=== PATIENT | female | born 1965 | race Caucasian/White ===

== ENCOUNTER 2018-08-13 21:31 | Inpatient (IN) ==
[2018-08-14] MEDS ORDERED: SODIUM CHLORIDE 0.9% 1,000 ML IV STA (01:15)
[2018-08-14] MEDS ORDERED: ONDANSETRON 4 MG/2 ML VIAL IV STA (01:15)
[2018-08-14] MEDS ORDERED: KETOROLAC 30 MG/1 ML VIAL IV STA (01:15)
[2018-08-14] MEDS ORDERED: MORPHINE 4 MG/1 ML VIAL IV STA (01:15)
[2018-08-14 02:24] LABS: Basophils # 0.1 10*3/uL (0.0-0.2); Basophils % 0.2 % (0.0-0.8); Eosinophils % 0.1 % (0.00-10.9); Hemoglobin 12.1 GM/DL (12.0-16.0); Immature Granulocytes % 0.9 %; Immature Granulocytes Absolute 0.27 #; Lymphocytes # 0.9 10*3/uL (1.4-4.0); Lymphocytes % 2.9 % (21.3-54.2); Mean Corpuscular HGB Conc 32.7 GM/DL (32-36); Mean Corpuscular Hemoglobin 30 PG (27-34); Mean Corpuscular Volume 91.4 FL (87-102); Mean Platelet Volume 10.1 FL (9.6-12.0); Monocytes # 1.2 10*3/uL (0.11-0.8); Monocytes % 3.8 % (1.7-12.7); Neutrophils # 28.1 10*3/uL (1.4-7.4); Neutrophils % 92.1 % (38.7-73.9); Platelet Count 361 T/CUMM (130-400); Red Blood Count 4.05 MC/CUMM (3.8-5.5); Red Cell Distribution Width 13.5 % (9.3-17.3); White Blood Count 30.5 T/CUMM (4-12)
[2018-08-14] MEDS ORDERED: HYDROmorphone 2 MG/1 ML VIAL IV STA (02:24)
[2018-08-14] MEDS ORDERED: ONDANSETRON 4 MG/2 ML VIAL IV PRN (02:24)
[2018-08-14 02:34] LABS: Albumin 3.4 G/DL (3.4-5.0); Osmolality,Calculated 273.8 MOS/KG (273-304); Total Protein 7.4 G/DL (6.4-8.3)
[2018-08-14] MEDS: PIPERACILLIN/TAZOBACTAM 3,375 MG in SODIUM CHLORIDE 0.9% 100 ML IV SCH ×3 (04:10→20:43)
[2018-08-14] MEDS: metroNIDAZOLE INJ 500 MG in PREMIX 1 EACH IV SCH ×3 (04:10→17:59)
[2018-08-14 04:28] LABS: Band Neutrophils 4 % (0-10); Lymphocytes 2 % (20-55); Platelet Estimate Normal; Segmented Neutrophils 91 % (50-85); Total Cells Counted 100
[2018-08-14 04:29] LABS: Hypochromasia 2+
[2018-08-14] MEDS: DEXTROSE 5% LACTATED RINGERS 1,000 ML IV SCH ×3 (04:30→17:33)
[2018-08-14 06:21] LABS: Basophils # 0.1 10*3/uL (0.0-0.2); Basophils % 0.2 % (0.0-0.8); Eosinophils % 0.1 % (0.00-10.9); Hematocrit 34.6 VOL% (35.7-47.0); Hemoglobin 11.1 GM/DL (12.0-16.0); Immature Granulocytes % 1.5 %; Immature Granulocytes Absolute 0.48 #; Lymphocytes # 1.6 10*3/uL (1.4-4.0); Lymphocytes % 5.1 % (21.3-54.2); Mean Corpuscular HGB Conc 32.1 GM/DL (32-36); Mean Corpuscular Hemoglobin 30 PG (27-34); Mean Corpuscular Volume 93.5 FL (87-102); Mean Platelet Volume 9.5 FL (9.6-12.0); Monocytes # 0.8 10*3/uL (0.11-0.8); Monocytes % 2.6 % (1.7-12.7); Neutrophils # 28.4 10*3/uL (1.4-7.4); Neutrophils % 90.5 % (38.7-73.9); Platelet Count 314 T/CUMM (130-400); Red Cell Distribution Width 13.6 % (9.3-17.3); White Blood Count 31.4 T/CUMM (4-12)
[2018-08-14] MEDS: HYDROmorphone 2 MG/1 ML VIAL IV PRN ×3 (06:28→16:44)
[2018-08-14 07:05] LABS: Band Neutrophils 6 % (0-10); Hypochromasia 1+; Lymphocytes 4 % (20-55); Ovalocytes Slight; Platelet Estimate Adequate; Segmented Neutrophils 86 % (50-85); Total Cells Counted 100
[2018-08-14] MEDS: LEVOTHYROXINE 50 MCG TABLET PO SCH (10:22)
[2018-08-14] MEDS: hydroCHLOROthiazide 25 MG TABLET PO SCH (10:22)
[2018-08-14] MEDS: ASPIRIN EC 81 MG TABLET PO SCH (10:22)
[2018-08-14] MEDS: PROPRANOLOL 40 MG TABLET PO SCH ×2 (10:22→21:55)
[2018-08-14] MEDS: PANTOPRAZOLE 40 MG VIAL IV SCH (16:45)
[2018-08-14] MEDS: POTASSIUM CHLORIDE RIDER 10 MEQ in PREMIX 1 EACH IV PRN ×5 (16:58→21:53)
[2018-08-14 18:41] LABS: Apearance,Urine CLEAR (Clear); Bilirubin,Urine Negative (Negative); Blood, Urine Negative (Negative); Glucose,Urine (UA) Negative (Negative); Ketones,Urine 5 mg/dL (Negative); Nitrite,Urine Negative (Negative); Protein,Urine 30 MG/DL; RBC,Urine 3 /HPF (0-4); Squamous Epithelial Cell,Urine Occasional /HPF (0-10); Urine Color Amber (Yellow); Urine Specific Gravity 1.023 (1.001-1.035); WBC,Urine 5 /HPF (0-6)
[2018-08-15 01:16] LABS: Basophils % 0.2 % (0.0-0.8); Eosinophils # 0.1 10*3/uL (0.0-0.87); Eosinophils % 0.2 % (0.00-10.9); Hematocrit 34.1 VOL% (35.7-47.0); Hemoglobin 10.8 GM/DL (12.0-16.0); Immature Granulocytes % 1.2 %; Lymphocytes % 4.1 % (21.3-54.2); Mean Corpuscular HGB Conc 31.7 GM/DL (32-36); Mean Corpuscular Hemoglobin 30 PG (27-34); Mean Corpuscular Volume 94.5 FL (87-102); Mean Platelet Volume 9.6 FL (9.6-12.0); Monocytes # 0.9 10*3/uL (0.11-0.8); Monocytes % 3.7 % (1.7-12.7); Neutrophils % 90.6 % (38.7-73.9); Platelet Count 330 T/CUMM (130-400); Red Blood Count 3.61 MC/CUMM (3.8-5.5); Red Cell Distribution Width 13.8 % (9.3-17.3); White Blood Count 25.4 T/CUMM (4-12)
[2018-08-15 01:43] LABS: Calcium 8.3 MG/DL (8.5-10.1); Osmolality,Calculated 280.3 MOS/KG (273-304); Potassium 3.9 MMOL/L (3.5-5.1)
[2018-08-15] MEDS: metroNIDAZOLE INJ 500 MG in PREMIX 1 EACH IV SCH ×3 (02:20→17:55)
[2018-08-15] MEDS: DEXTROSE 5% LACTATED RINGERS 1,000 ML IV SCH ×3 (02:26→20:17)
[2018-08-15] MEDS: POTASSIUM CHLORIDE RIDER 10 MEQ in PREMIX 1 EACH IV PRN ×2 (02:27→03:34)
[2018-08-15 02:59] LABS: Band Neutrophils 1 % (0-10); Lymphocytes 6 % (20-55); Segmented Neutrophils 90 % (50-85)
[2018-08-15 03:00] LABS: Platelet Estimate Adequate; Total Cells Counted 100
[2018-08-15] MEDS: PIPERACILLIN/TAZOBACTAM 3,375 MG in SODIUM CHLORIDE 0.9% 100 ML IV SCH ×3 (03:35→20:15)
[2018-08-15] MEDS: LEVOTHYROXINE 50 MCG TABLET PO SCH (06:14)
[2018-08-15] MEDS: HYDROmorphone 2 MG/1 ML VIAL IV PRN (10:34)
[2018-08-15] MEDS: hydroCHLOROthiazide 25 MG TABLET PO SCH (10:41)
[2018-08-15] MEDS: ASPIRIN EC 81 MG TABLET PO SCH (10:41)
[2018-08-15] MEDS: PANTOPRAZOLE 40 MG VIAL IV SCH (10:41)
[2018-08-15] MEDS: PROPRANOLOL 40 MG TABLET PO SCH ×2 (10:42→20:16)
[2018-08-15] MEDS ORDERED: INFLUENZA VIRUS VACCINE 0.5 ML SYRINGE IM ONE (11:00)
[2018-08-16] MEDS: metroNIDAZOLE INJ 500 MG in PREMIX 1 EACH IV SCH ×3 (02:06→18:35)
[2018-08-16] MEDS: PIPERACILLIN/TAZOBACTAM 3,375 MG in SODIUM CHLORIDE 0.9% 100 ML IV SCH ×3 (04:25→19:38)
[2018-08-16 05:26] LABS: Basophils % 0.2 % (0.0-0.8); Eosinophils # 0.1 10*3/uL (0.0-0.87); Eosinophils % 0.7 % (0.00-10.9); Hematocrit 33.5 VOL% (35.7-47.0); Hemoglobin 10.8 GM/DL (12.0-16.0); Immature Granulocytes % 1.2 %; Immature Granulocytes Absolute 0.22 #; Lymphocytes # 1.2 10*3/uL (1.4-4.0); Lymphocytes % 6.8 % (21.3-54.2); Mean Corpuscular HGB Conc 32.2 GM/DL (32-36); Mean Corpuscular Hemoglobin 30 PG (27-34); Mean Corpuscular Volume 93.6 FL (87-102); Monocytes # 1.1 10*3/uL (0.11-0.8); Monocytes % 6.1 % (1.7-12.7); Platelet Count 369 T/CUMM (130-400); Red Blood Count 3.58 MC/CUMM (3.8-5.5); Red Cell Distribution Width 13.5 % (9.3-17.3); White Blood Count 17.7 T/CUMM (4-12)
[2018-08-16] MEDS: LEVOTHYROXINE 50 MCG TABLET PO SCH (06:11)
[2018-08-16 06:44] LABS: Calcium 8.3 MG/DL (8.5-10.1); Osmolality,Calculated 281.1 MOS/KG (273-304); Potassium 3.2 MMOL/L (3.5-5.1)
[2018-08-16] MEDS: ASPIRIN EC 81 MG TABLET PO SCH (10:02)
[2018-08-16] MEDS: POTASSIUM CHLORIDE 20 MEQ TABLET PO PRN ×4 (10:03→21:12)
[2018-08-16] MEDS: PANTOPRAZOLE 40 MG VIAL IV SCH (10:03)
[2018-08-16] MEDS: hydroCHLOROthiazide 25 MG TABLET PO SCH (10:03)
[2018-08-16] MEDS: PROPRANOLOL 40 MG TABLET PO SCH ×2 (10:03→21:12)
[2018-08-16] MEDS: DEXTROSE 5% LACTATED RINGERS 1,000 ML IV SCH (10:04)
[2018-08-16] MEDS: HYDROmorphone 2 MG/1 ML VIAL IV PRN (12:22)
[2018-08-16] MEDS ORDERED: ZALEPLON 5 MG CAPSULE PO PRN (19:16)
[2018-08-17] MEDS: metroNIDAZOLE INJ 500 MG in PREMIX 1 EACH IV SCH (02:38)
[2018-08-17 03:33] LABS: Basophils % 0.3 % (0.0-0.8); Eosinophils # 0.3 10*3/uL (0.0-0.87); Eosinophils % 1.9 % (0.00-10.9); Hematocrit 35.7 VOL% (35.7-47.0); Hemoglobin 11.4 GM/DL (12.0-16.0); Immature Granulocytes % 1.5 %; Immature Granulocytes Absolute 0.21 #; Lymphocytes # 1.3 10*3/uL (1.4-4.0); Lymphocytes % 9.5 % (21.3-54.2); Mean Corpuscular HGB Conc 31.9 GM/DL (32-36); Mean Corpuscular Hemoglobin 29 PG (27-34); Mean Platelet Volume 9.6 FL (9.6-12.0); Monocytes # 1.3 10*3/uL (0.11-0.8); Monocytes % 9.7 % (1.7-12.7); Neutrophils # 10.5 10*3/uL (1.4-7.4); Neutrophils % 77.1 % (38.7-73.9); Platelet Count 405 T/CUMM (130-400); Red Blood Count 3.88 MC/CUMM (3.8-5.5); Red Cell Distribution Width 13.7 % (9.3-17.3); White Blood Count 13.6 T/CUMM (4-12)
[2018-08-17 03:59] LABS: Calcium 8.7 MG/DL (8.5-10.1); Osmolality,Calculated 280.3 MOS/KG (273-304); Potassium 3.8 MMOL/L (3.5-5.1)
[2018-08-17] MEDS: PIPERACILLIN/TAZOBACTAM 3,375 MG in SODIUM CHLORIDE 0.9% 100 ML IV SCH (04:47)
[2018-08-17] MEDS: HYDROmorphone 2 MG/1 ML VIAL IV PRN (04:53)
[2018-08-17] MEDS: LEVOTHYROXINE 50 MCG TABLET PO SCH (06:40)
[2018-08-17 08:05] VITALS: BP 116/76
[2018-08-17] MEDS: hydroCHLOROthiazide 25 MG TABLET PO SCH (09:07)
[2018-08-17] MEDS: ASPIRIN EC 81 MG TABLET PO SCH (09:07)
[2018-08-17] MEDS: PROPRANOLOL 40 MG TABLET PO SCH (09:07)
[2018-08-17] MEDS: PANTOPRAZOLE 40 MG VIAL IV SCH (09:09)
== END 2018-08-17 11:02 | disposition home or self-care (01) | DRG 392 ==
LOC: N.EDINP 21:31 → N.ED 21:31 → N.3E 08-14 08:15
PROVIDERS: ADMIT Surgery; ATTEND Surgery

== ENCOUNTER 2018-08-18 13:04 | Inpatient (IN) ==
[2018-08-18] MEDS ORDERED: SODIUM CHLORIDE 0.9% 500 ML IV STA (14:17)
[2018-08-18] MEDS ORDERED: SODIUM CHLORIDE 0.9% 1,000 ML IV STA (15:32)
[2018-08-18 15:45] LABS: Apearance,Urine CLEAR (Clear); Bilirubin,Urine Negative (Negative); Blood, Urine Negative (Negative); Glucose,Urine (UA) Negative (Negative); Hyaline Casts,Urine 1 /LPF (0-3); Ketones,Urine 5 mg/dL (Negative); Mucus,Urine Occasional /LPF (Occasional); Nitrite,Urine Negative (Negative); Protein,Urine Negative; RBC,Urine 2 /HPF (0-4); Squamous Epithelial Cell,Urine Occasional /HPF (0-10); Urine Color Yellow (Yellow); Urine Specific Gravity 1.009 (1.001-1.035); Urine Urobilinogen < 2.0 EU/DL (0.2-1.0); WBC,Urine 1 /HPF (0-6)
[2018-08-18 16:06] LABS: Basophils # 0.1 10*3/uL (0.0-0.2); Basophils % 0.5 % (0.0-0.8); Eosinophils # 0.1 10*3/uL (0.0-0.87); Eosinophils % 0.6 % (0.00-10.9); Hematocrit 37.6 VOL% (35.7-47.0); Immature Granulocytes % 4.5 %; Immature Granulocytes Absolute 0.86 #; Lymphocytes # 1.5 10*3/uL (1.4-4.0); Lymphocytes % 7.7 % (21.3-54.2); Mean Corpuscular HGB Conc 31.9 GM/DL (32-36); Mean Corpuscular Hemoglobin 29 PG (27-34); Mean Platelet Volume 9.5 FL (9.6-12.0); Monocytes # 1.4 10*3/uL (0.11-0.8); Monocytes % 7.5 % (1.7-12.7); NRBC # 0.02 10*3/uL; Neutrophils # 15.3 10*3/uL (1.4-7.4); Neutrophils % 79.2 % (38.7-73.9); Platelet Count 499 T/CUMM (130-400); Red Blood Count 4.13 MC/CUMM (3.8-5.5); Red Cell Distribution Width 13.6 % (9.3-17.3); White Blood Count 19.3 T/CUMM (4-12)
[2018-08-18 16:27] LABS: Calcium 8.9 MG/DL (8.5-10.1); Osmolality,Calculated 270.8 MOS/KG (273-304); Potassium 3.5 MMOL/L (3.5-5.1)
[2018-08-18] MEDS: PIPERACILLIN/TAZOBACTAM 3,375 MG in SODIUM CHLORIDE 0.9% 100 ML IV SCH ×2 (16:29→23:12)
[2018-08-18] MEDS ORDERED: HYDROmorphone 2 MG/1 ML VIAL IV STA (16:37)
[2018-08-18] MEDS ORDERED: ONDANSETRON 4 MG/2 ML VIAL IV STA (16:37)
[2018-08-18] MEDS ORDERED: ONDANSETRON 4 MG/2 ML VIAL ONE (16:39)
[2018-08-18] MEDS ORDERED: HYDROmorphone 2 MG/1 ML VIAL ONE (16:40)
[2018-08-18] MEDS ORDERED: PIPERACILLIN/TAZOBACTAM 3,375 MG in SODIUM CHLORIDE 0.9% 100 ML IV SCH (18:10)
[2018-08-18] MEDS ORDERED: ACETAMINOPHEN 325 MG TABLET PO PRN (18:10)
[2018-08-18] MEDS ORDERED: tiZANidine 4 MG TABLET PO PRN (18:10)
[2018-08-18] MEDS ORDERED: ONDANSETRON 4 MG/2 ML VIAL IV PRN (18:10)
[2018-08-18 18:29] LABS: Band Neutrophils 7 % (0-10); Eosinophils 1 % (0-10); Lymphocytes 10 % (20-55); Segmented Neutrophils 76 % (50-85)
[2018-08-18 18:30] LABS: Polychromasia Few
[2018-08-18 18:31] LABS: Spherocytes Few
[2018-08-18 18:32] LABS: Anisocytosis Slight
[2018-08-18 18:33] LABS: Ovalocytes Few; Platelet Estimate Increased
[2018-08-18 18:34] LABS: Total Cells Counted 100
[2018-08-18] MEDS: SODIUM CHLORIDE 0.9% 1,000 ML IV SCH ×2 (20:12→23:12)
[2018-08-18] MEDS: LACTATED RINGERS 1,000 ML IV SCH (20:13)
[2018-08-18] MEDS: traZODone 50 MG TABLET PO PRN (20:19)
[2018-08-18] MEDS: PROPRANOLOL 40 MG TABLET PO SCH (21:21)
[2018-08-19] MEDS: LACTATED RINGERS 1,000 ML IV SCH ×2 (03:51→10:59)
[2018-08-19 05:48] LABS: Basophils # 0.1 10*3/uL (0.0-0.2); Basophils % 0.6 % (0.0-0.8); Eosinophils # 0.2 10*3/uL (0.0-0.87); Eosinophils % 1.6 % (0.00-10.9); Hemoglobin 11.2 GM/DL (12.0-16.0); Immature Granulocytes % 4.7 %; Immature Granulocytes Absolute 0.72 #; Lymphocytes # 1.8 10*3/uL (1.4-4.0); Lymphocytes % 11.9 % (21.3-54.2); Mean Corpuscular Hemoglobin 30 PG (27-34); Mean Corpuscular Volume 92.1 FL (87-102); Mean Platelet Volume 9.6 FL (9.6-12.0); Monocytes # 1.6 10*3/uL (0.11-0.8); Monocytes % 10.2 % (1.7-12.7); NRBC # 0.02 10*3/uL; Neutrophils # 10.9 10*3/uL (1.4-7.4); Platelet Count 495 T/CUMM (130-400); Red Cell Distribution Width 13.8 % (9.3-17.3); White Blood Count 15.3 T/CUMM (4-12)
[2018-08-19 05:53] LABS: Calcium 7.9 MG/DL (8.5-10.1); Osmolality,Calculated 277.3 MOS/KG (273-304); Potassium 3.3 MMOL/L (3.5-5.1)
[2018-08-19] MEDS: LEVOTHYROXINE 50 MCG TABLET PO SCH (06:03)
[2018-08-19 06:17] LABS: Band Neutrophils 1 % (0-10); Eosinophils 1 % (0-10); Lymphocytes 13 % (20-55); Myelocytes 1 %; Segmented Neutrophils 79 % (50-85); Total Cells Counted 100
[2018-08-19 06:18] LABS: Atypical Lymphocytes Few; Hypochromasia 1+
[2018-08-19] MEDS: PIPERACILLIN/TAZOBACTAM 3,375 MG in SODIUM CHLORIDE 0.9% 100 ML IV SCH ×2 (09:02→16:04)
[2018-08-19] MEDS: SODIUM CHLORIDE 0.9% 1,000 ML IV SCH ×2 (09:02→16:04)
[2018-08-19] MEDS: hydroCHLOROthiazide 25 MG TABLET PO SCH (09:03)
[2018-08-19] MEDS: ASPIRIN EC 81 MG TABLET PO SCH (09:03)
[2018-08-19] MEDS: PANTOPRAZOLE 40 MG TABLET PO SCH (09:04)
[2018-08-19] MEDS: PROPRANOLOL 40 MG TABLET PO SCH ×2 (09:04→21:33)
[2018-08-19] MEDS ORDERED: MIDAZOLAM 2 MG/2 ML VIAL IV ONE (09:55)
[2018-08-19] MEDS ORDERED: fentaNYL 100 MCG/2 ML VIAL IV ONE (09:55)
[2018-08-19] MEDS ORDERED: DIAZEPAM 5 MG TABLET PO ONE (09:55)
[2018-08-19] MEDS ORDERED: SODIUM CHLORIDE 0.45% 1,000 ML IV SCH (10:00)
[2018-08-19] MEDS: MORPHINE 4 MG/1 ML VIAL IV PRN ×2 (12:13→16:05)
[2018-08-19] MEDS: ENOXAPARIN 40 MG/0.4 ML SYRINGE SUBCUT SCH (12:22)
[2018-08-19] MEDS ORDERED: fentaNYL 100 MCG/2 ML VIAL ONE (14:39)
[2018-08-19] MEDS ORDERED: MIDAZOLAM 2 MG/2 ML VIAL ONE (14:39)
[2018-08-20] MEDS: SODIUM CHLORIDE 0.9% 1,000 ML IV SCH (00:54)
[2018-08-20] MEDS: PIPERACILLIN/TAZOBACTAM 3,375 MG in SODIUM CHLORIDE 0.9% 100 ML IV SCH ×3 (00:54→15:40)
[2018-08-20 05:07] LABS: Basophils % 0.3 % (0.0-0.8); Eosinophils # 0.2 10*3/uL (0.0-0.87); Eosinophils % 1.8 % (0.00-10.9); Hematocrit 34.8 VOL% (35.7-47.0); Immature Granulocytes % 4.8 %; Immature Granulocytes Absolute 0.61 #; Lymphocytes # 1.8 10*3/uL (1.4-4.0); Lymphocytes % 13.9 % (21.3-54.2); Mean Corpuscular HGB Conc 31.6 GM/DL (32-36); Mean Corpuscular Hemoglobin 29 PG (27-34); Mean Corpuscular Volume 92.1 FL (87-102); Mean Platelet Volume 9.6 FL (9.6-12.0); Monocytes # 1.1 10*3/uL (0.11-0.8); Monocytes % 8.5 % (1.7-12.7); Neutrophils % 70.7 % (38.7-73.9); Platelet Count 526 T/CUMM (130-400); Red Blood Count 3.78 MC/CUMM (3.8-5.5); Red Cell Distribution Width 13.7 % (9.3-17.3); White Blood Count 12.8 T/CUMM (4-12)
[2018-08-20 05:38] LABS: Calcium 8.8 MG/DL (8.5-10.1); Osmolality,Calculated 274.5 MOS/KG (273-304); Potassium 3.5 MMOL/L (3.5-5.1)
[2018-08-20 05:42] LABS: Eosinophils 2 % (0-10); Lymphocytes 11 % (20-55); Platelet Estimate Increased; Segmented Neutrophils 79 % (50-85); Total Cells Counted 100
[2018-08-20] MEDS: LEVOTHYROXINE 50 MCG TABLET PO SCH (06:38)
[2018-08-20] MEDS: ASPIRIN EC 81 MG TABLET PO SCH (08:54)
[2018-08-20] MEDS: PANTOPRAZOLE 40 MG TABLET PO SCH (08:54)
[2018-08-20] MEDS: PROPRANOLOL 40 MG TABLET PO SCH ×2 (08:54→21:15)
[2018-08-20] MEDS: hydroCHLOROthiazide 25 MG TABLET PO SCH (08:54)
[2018-08-20] MEDS: ENOXAPARIN 40 MG/0.4 ML SYRINGE SUBCUT SCH (11:49)
[2018-08-20] MEDS: traZODone 50 MG TABLET PO PRN (21:15)
[2018-08-21] MEDS: PIPERACILLIN/TAZOBACTAM 3,375 MG in SODIUM CHLORIDE 0.9% 100 ML IV SCH ×4 (02:24→23:16)
[2018-08-21 05:22] LABS: Calcium 8.8 MG/DL (8.5-10.1); Osmolality,Calculated 277.3 MOS/KG (273-304); Potassium 3.5 MMOL/L (3.5-5.1)
[2018-08-21 05:42] LABS: Basophils # 0.1 10*3/uL (0.0-0.2); Basophils % 0.7 % (0.0-0.8); Eosinophils # 0.3 10*3/uL (0.0-0.87); Eosinophils % 2.7 % (0.00-10.9); Hematocrit 37.3 VOL% (35.7-47.0); Hemoglobin 11.9 GM/DL (12.0-16.0); Immature Granulocytes % 5.2 %; Immature Granulocytes Absolute 0.62 #; Lymphocytes # 2.2 10*3/uL (1.4-4.0); Lymphocytes % 18.7 % (21.3-54.2); Mean Corpuscular HGB Conc 31.9 GM/DL (32-36); Mean Corpuscular Hemoglobin 29 PG (27-34); Mean Corpuscular Volume 92.1 FL (87-102); Mean Platelet Volume 9.3 FL (9.6-12.0); Monocytes % 8.5 % (1.7-12.7); Neutrophils # 7.7 10*3/uL (1.4-7.4); Neutrophils % 64.2 % (38.7-73.9); Platelet Count 574 T/CUMM (130-400); Red Blood Count 4.05 MC/CUMM (3.8-5.5); Red Cell Distribution Width 13.6 % (9.3-17.3)
[2018-08-21] MEDS: LEVOTHYROXINE 50 MCG TABLET PO SCH (06:37)
[2018-08-21 06:57] LABS: Eosinophils 6 % (0-10); Lymphocytes 17 % (20-55); Platelet Estimate Increased; Polychromasia Few; Segmented Neutrophils 74 % (50-85); Total Cells Counted 100
[2018-08-21] MEDS: hydroCHLOROthiazide 25 MG TABLET PO SCH (09:33)
[2018-08-21] MEDS: PANTOPRAZOLE 40 MG TABLET PO SCH (09:33)
[2018-08-21] MEDS: PROPRANOLOL 40 MG TABLET PO SCH ×2 (09:33→21:11)
[2018-08-21] MEDS: ASPIRIN EC 81 MG TABLET PO SCH (09:33)
[2018-08-21] MEDS: ENOXAPARIN 40 MG/0.4 ML SYRINGE SUBCUT SCH (10:54)
[2018-08-22] MEDS: LEVOTHYROXINE 50 MCG TABLET PO SCH (05:58)
[2018-08-22 06:00] LABS: Basophils # 0.1 10*3/uL (0.0-0.2); Basophils % 0.6 % (0.0-0.8); Eosinophils # 0.4 10*3/uL (0.0-0.87); Eosinophils % 2.5 % (0.00-10.9); Hematocrit 38.5 VOL% (35.7-47.0); Hemoglobin 12.4 GM/DL (12.0-16.0); Immature Granulocytes % 4.3 %; Immature Granulocytes Absolute 0.64 #; Lymphocytes # 1.8 10*3/uL (1.4-4.0); Lymphocytes % 11.7 % (21.3-54.2); Mean Corpuscular HGB Conc 32.2 GM/DL (32-36); Mean Corpuscular Hemoglobin 30 PG (27-34); Mean Corpuscular Volume 92.1 FL (87-102); Mean Platelet Volume 9.4 FL (9.6-12.0); Monocytes # 0.9 10*3/uL (0.11-0.8); Monocytes % 5.9 % (1.7-12.7); Neutrophils # 11.2 10*3/uL (1.4-7.4); Platelet Count 631 T/CUMM (130-400); Red Blood Count 4.18 MC/CUMM (3.8-5.5); Red Cell Distribution Width 13.5 % (9.3-17.3)
[2018-08-22 06:23] LABS: Calcium 9.3 MG/DL (8.5-10.1); Osmolality,Calculated 272.7 MOS/KG (273-304); Potassium 3.5 MMOL/L (3.5-5.1)
[2018-08-22 06:32] LABS: Band Neutrophils 2 % (0-10); Lymphocytes 13 % (20-55); Metamyelocytes 4 %; Total Cells Counted 100
[2018-08-22 06:33] LABS: Eosinophils 2 % (0-10); Platelet Estimate Increased; Segmented Neutrophils 73 % (50-85)
[2018-08-22 06:34] LABS: Hypochromasia Slight; Ovalocytes Few; Polychromasia 1+
[2018-08-22] MEDS: PIPERACILLIN/TAZOBACTAM 3,375 MG in SODIUM CHLORIDE 0.9% 100 ML IV SCH ×2 (07:41→15:32)
[2018-08-22] MEDS: ASPIRIN EC 81 MG TABLET PO SCH (09:34)
[2018-08-22] MEDS: hydroCHLOROthiazide 25 MG TABLET PO SCH (09:34)
[2018-08-22] MEDS: PANTOPRAZOLE 40 MG TABLET PO SCH (09:35)
[2018-08-22] MEDS: PROPRANOLOL 40 MG TABLET PO SCH ×2 (09:35→20:50)
[2018-08-22] MEDS: ENOXAPARIN 40 MG/0.4 ML SYRINGE SUBCUT SCH (10:41)
[2018-08-22] MEDS: traZODone 50 MG TABLET PO PRN (20:44)
[2018-08-23] MEDS: PIPERACILLIN/TAZOBACTAM 3,375 MG in SODIUM CHLORIDE 0.9% 100 ML IV SCH (00:29)
[2018-08-23] MEDS: LEVOTHYROXINE 50 MCG TABLET PO SCH (05:57)
[2018-08-23 06:42] LABS: Basophils # 0.1 10*3/uL (0.0-0.2); Basophils % 0.6 % (0.0-0.8); Eosinophils # 0.3 10*3/uL (0.0-0.87); Eosinophils % 2.1 % (0.00-10.9); Hematocrit 39.8 VOL% (35.7-47.0); Hemoglobin 12.6 GM/DL (12.0-16.0); Immature Granulocytes % 3.1 %; Immature Granulocytes Absolute 0.44 #; Lymphocytes # 1.5 10*3/uL (1.4-4.0); Lymphocytes % 10.6 % (21.3-54.2); Mean Corpuscular HGB Conc 31.7 GM/DL (32-36); Mean Corpuscular Hemoglobin 29 PG (27-34); Mean Corpuscular Volume 91.3 FL (87-102); Mean Platelet Volume 9.3 FL (9.6-12.0); Monocytes # 0.8 10*3/uL (0.11-0.8); Monocytes % 5.8 % (1.7-12.7); Neutrophils # 11.2 10*3/uL (1.4-7.4); Neutrophils % 77.8 % (38.7-73.9); Platelet Count 673 T/CUMM (130-400); Red Blood Count 4.36 MC/CUMM (3.8-5.5); Red Cell Distribution Width 13.4 % (9.3-17.3); White Blood Count 14.4 T/CUMM (4-12)
[2018-08-23] MEDS: metroNIDAZOLE INJ 500 MG in PREMIX 1 EACH IV SCH ×3 (06:55→21:29)
[2018-08-23] MEDS: CIPROFLOXACIN INJ 400 MG in PREMIX 1 EACH IV SCH ×2 (08:27→19:05)
[2018-08-23] MEDS: hydroCHLOROthiazide 25 MG TABLET PO SCH (08:34)
[2018-08-23] MEDS: ASPIRIN EC 81 MG TABLET PO SCH (08:34)
[2018-08-23] MEDS: PROPRANOLOL 40 MG TABLET PO SCH ×2 (08:34→21:21)
[2018-08-23] MEDS: PANTOPRAZOLE 40 MG TABLET PO SCH (08:34)
[2018-08-23] MEDS: ENOXAPARIN 40 MG/0.4 ML SYRINGE SUBCUT SCH (11:30)
[2018-08-23] MEDS: traZODone 50 MG TABLET PO PRN (21:21)
[2018-08-24 05:39] LABS: Basophils # 0.1 10*3/uL (0.0-0.2); Basophils % 0.6 % (0.0-0.8); Eosinophils # 0.3 10*3/uL (0.0-0.87); Eosinophils % 1.9 % (0.00-10.9); Hemoglobin 12.8 GM/DL (12.0-16.0); Immature Granulocytes % 3.2 %; Immature Granulocytes Absolute 0.43 #; Lymphocytes # 1.7 10*3/uL (1.4-4.0); Lymphocytes % 12.8 % (21.3-54.2); Mean Corpuscular Hemoglobin 29 PG (27-34); Mean Corpuscular Volume 90.9 FL (87-102); Mean Platelet Volume 9.2 FL (9.6-12.0); Monocytes # 0.8 10*3/uL (0.11-0.8); Monocytes % 6.3 % (1.7-12.7); Neutrophils % 75.2 % (38.7-73.9); Platelet Count 673 T/CUMM (130-400); Red Cell Distribution Width 13.5 % (9.3-17.3); White Blood Count 13.3 T/CUMM (4-12)
[2018-08-24] MEDS: metroNIDAZOLE INJ 500 MG in PREMIX 1 EACH IV SCH (05:44)
[2018-08-24] MEDS: LEVOTHYROXINE 50 MCG TABLET PO SCH (05:47)
[2018-08-24] MEDS: CIPROFLOXACIN INJ 400 MG in PREMIX 1 EACH IV SCH (06:45)
[2018-08-24] MEDS: PANTOPRAZOLE 40 MG TABLET PO SCH (08:07)
[2018-08-24] MEDS: ASPIRIN EC 81 MG TABLET PO SCH (08:07)
[2018-08-24] MEDS: hydroCHLOROthiazide 25 MG TABLET PO SCH (08:07)
[2018-08-24] MEDS: PROPRANOLOL 40 MG TABLET PO SCH (08:07)
[2018-08-24] MEDS: ENOXAPARIN 40 MG/0.4 ML SYRINGE SUBCUT SCH (09:47)
[2018-08-24 11:10] VITALS: BP 120/72
== END 2018-08-24 11:40 | disposition home or self-care (01) | DRG 392 ==
LOC: N.ED 13:04 → N.EDINP 16:40 → N.3E 18:00
PROVIDERS: ADMIT Surgery; ATTEND Surgery

== ENCOUNTER 2018-09-06 19:48 | Inpatient (IN) ==
[2018-09-06 21:00] LABS: Basophils % 0.3 % (0.0-0.8); Eosinophils # 0.2 10*3/uL (0.0-0.87); Eosinophils % 1.2 % (0.00-10.9); Hematocrit 38.4 VOL% (35.7-47.0); Hemoglobin 12.4 GM/DL (12.0-16.0); Immature Granulocytes % 1.1 %; Immature Granulocytes Absolute 0.15 #; Lymphocytes # 1.9 10*3/uL (1.4-4.0); Lymphocytes % 13.7 % (21.3-54.2); Mean Corpuscular HGB Conc 32.3 GM/DL (32-36); Mean Corpuscular Hemoglobin 29 PG (27-34); Mean Platelet Volume 9.3 FL (9.6-12.0); Monocytes # 1.3 10*3/uL (0.11-0.8); Monocytes % 9.5 % (1.7-12.7); Neutrophils # 10.1 10*3/uL (1.4-7.4); Neutrophils % 74.2 % (38.7-73.9); Platelet Count 571 T/CUMM (130-400); Red Blood Count 4.22 MC/CUMM (3.8-5.5); Red Cell Distribution Width 13.2 % (9.3-17.3); White Blood Count 13.6 T/CUMM (4-12)
[2018-09-06 21:17] LABS: Alanine Aminotransferase 15 U/L (13-56); Albumin 3.2 G/DL (3.4-5.0); Alkaline Phosphatase 82 U/L (45-117); Amylase 45 U/L (25-115); Aspartate Amino Transferase 11 U/L (0-37); Bilirubin,Total < 0.39 MG/DL (0.2-1.0); Blood Urea Nitrogen 7 MG/DL (7-18); Calcium 9.7 MG/DL (8.5-10.1); Glucose 133 MG/DL (74-106); Osmolality,Calculated 272.8 MOS/KG (273-304); Potassium 3.3 MMOL/L (3.5-5.1); Sodium 137 MMOL/L (136-145); Total Protein 7.6 G/DL (6.4-8.3)
[2018-09-06] MEDS ORDERED: HYDROmorphone 2 MG/1 ML VIAL IV STA (22:07)
[2018-09-06] MEDS ORDERED: PIPERACILLIN/TAZOBACTAM 3,375 MG in SODIUM CHLORIDE 0.9% 100 ML IV SCH (23:45)
[2018-09-06] MEDS ORDERED: ACETAMINOPHEN 325 MG TABLET PO PRN (23:57)
[2018-09-07] MEDS ORDERED: HYDROmorphone 2 MG/1 ML VIAL IV STA (00:14)
[2018-09-07] MEDS ORDERED: PIPERACILLIN/TAZOBACTAM 3,375 MG in SODIUM CHLORIDE 0.9% 100 ML IV STA (00:15)
[2018-09-07] MEDS: DEXTROSE 5% NACL 0.45% 1,000 ML IV SCH ×2 (02:26→10:53)
[2018-09-07] MEDS ORDERED: INFLUENZA VIRUS VACCINE 0.5 ML SYRINGE IM ONE (02:59)
[2018-09-07 04:02] LABS: Apearance,Urine CLEAR (Clear); Bilirubin,Urine Negative (Negative); Blood, Urine Negative (Negative); Glucose,Urine (UA) Negative (Negative); Ketones,Urine Negative (Negative); Mucus,Urine Occasional /LPF (Occasional); Nitrite,Urine Negative (Negative); Protein,Urine Negative; RBC,Urine 1 /HPF (0-4); Squamous Epithelial Cell,Urine Occasional /HPF (0-10); Urine Color Yellow (Yellow); Urine Specific Gravity 1.009 (1.001-1.035); Urine Urobilinogen < 2.0 EU/DL (0.2-1.0); WBC,Urine <1 /HPF (0-6)
[2018-09-07] MEDS: HYDROmorphone 2 MG/1 ML VIAL IV PRN ×2 (04:32→17:14)
[2018-09-07 04:56] LABS: Calcium 9.1 MG/DL (8.5-10.1); Osmolality,Calculated 274.7 MOS/KG (273-304); Potassium 3.4 MMOL/L (3.5-5.1)
[2018-09-07 08:33] LABS: Basophils % 0.2 % (0.0-0.8); Eosinophils # 0.1 10*3/uL (0.0-0.87); Eosinophils % 0.8 % (0.00-10.9); Hematocrit 36.5 VOL% (35.7-47.0); Hemoglobin 11.4 GM/DL (12.0-16.0); Immature Granulocytes % 0.8 %; Lymphocytes # 1.5 10*3/uL (1.4-4.0); Lymphocytes % 11.5 % (21.3-54.2); Mean Corpuscular HGB Conc 31.2 GM/DL (32-36); Mean Corpuscular Hemoglobin 29 PG (27-34); Mean Corpuscular Volume 92.9 FL (87-102); Mean Platelet Volume 9.7 FL (9.6-12.0); Monocytes # 1.3 10*3/uL (0.11-0.8); Monocytes % 10.3 % (1.7-12.7); Neutrophils # 9.8 10*3/uL (1.4-7.4); Neutrophils % 76.4 % (38.7-73.9); Platelet Count 520 T/CUMM (130-400); Red Blood Count 3.93 MC/CUMM (3.8-5.5); Red Cell Distribution Width 13.4 % (9.3-17.3); White Blood Count 12.9 T/CUMM (4-12)
[2018-09-07] MEDS: PANTOPRAZOLE 40 MG TABLET PO SCH (10:50)
[2018-09-07] MEDS: ENOXAPARIN 40 MG/0.4 ML SYRINGE SUBCUT SCH (15:41)
[2018-09-07] MEDS: ERTAPENEM 1,000 MG in SODIUM CHLORIDE 0.9% 100 ML IV SCH (15:41)
[2018-09-07] MEDS: DEXT 5% NACL 0.45% KCL 40 MEQ 40 MEQ/1,000 ML BAG IV SCH (17:14)
[2018-09-07] MEDS: POTASSIUM CHLORIDE 20 MEQ TABLET PO PRN (21:08)
[2018-09-08] MEDS: POTASSIUM CHLORIDE 20 MEQ TABLET PO PRN (00:14)
[2018-09-08] MEDS: HYDROmorphone 2 MG/1 ML VIAL IV PRN ×4 (01:21→17:06)
[2018-09-08] MEDS: DEXT 5% NACL 0.45% KCL 40 MEQ 40 MEQ/1,000 ML BAG IV SCH ×4 (01:24→20:13)
[2018-09-08 06:52] LABS: Basophils % 0.3 % (0.0-0.8); Calcium 8.3 MG/DL (8.5-10.1); Eosinophils # 0.2 10*3/uL (0.0-0.87); Eosinophils % 1.7 % (0.00-10.9); Hematocrit 36.1 VOL% (35.7-47.0); Immature Granulocytes % 0.7 %; Immature Granulocytes Absolute 0.06 #; Lymphocytes # 1.6 10*3/uL (1.4-4.0); Lymphocytes % 18.3 % (21.3-54.2); Mean Corpuscular HGB Conc 30.5 GM/DL (32-36); Mean Corpuscular Hemoglobin 29 PG (27-34); Mean Corpuscular Volume 94.3 FL (87-102); Mean Platelet Volume 9.8 FL (9.6-12.0); Monocytes # 0.9 10*3/uL (0.11-0.8); Monocytes % 9.8 % (1.7-12.7); Neutrophils # 6.2 10*3/uL (1.4-7.4); Neutrophils % 69.2 % (38.7-73.9); Osmolality,Calculated 278.3 MOS/KG (273-304); Platelet Count 501 T/CUMM (130-400); Potassium 3.9 MMOL/L (3.5-5.1); Red Blood Count 3.83 MC/CUMM (3.8-5.5); Red Cell Distribution Width 13.2 % (9.3-17.3)
[2018-09-08] MEDS: PANTOPRAZOLE 40 MG TABLET PO SCH (10:12)
[2018-09-08] MEDS: oxyCODONE/ACETAMINOPHEN 5-325 MG TABLET PO PRN ×2 (14:29→20:13)
[2018-09-08] MEDS: ENOXAPARIN 40 MG/0.4 ML SYRINGE SUBCUT SCH (14:30)
[2018-09-08] MEDS: ERTAPENEM 1,000 MG in SODIUM CHLORIDE 0.9% 100 ML IV SCH (14:32)
[2018-09-08] MEDS: ONDANSETRON 4 MG/2 ML VIAL IV PRN (17:07)
[2018-09-09] MEDS: HYDROmorphone 2 MG/1 ML VIAL IV PRN ×5 (00:49→22:09)
[2018-09-09] MEDS: oxyCODONE/ACETAMINOPHEN 5-325 MG TABLET PO PRN ×3 (03:17→20:20)
[2018-09-09 06:04] LABS: Calcium 8.5 MG/DL (8.5-10.1); Osmolality,Calculated 270.7 MOS/KG (273-304); Potassium 4.6 MMOL/L (3.5-5.1)
[2018-09-09 06:05] LABS: Basophils % 0.3 % (0.0-0.8); Eosinophils # 0.3 10*3/uL (0.0-0.87); Eosinophils % 2.8 % (0.00-10.9); Hemoglobin 11.1 GM/DL (12.0-16.0); Immature Granulocytes % 1.6 %; Immature Granulocytes Absolute 0.16 #; Lymphocytes # 1.7 10*3/uL (1.4-4.0); Lymphocytes % 17.9 % (21.3-54.2); Mean Corpuscular HGB Conc 30.8 GM/DL (32-36); Mean Corpuscular Hemoglobin 29 PG (27-34); Mean Platelet Volume 9.7 FL (9.6-12.0); Neutrophils # 6.6 10*3/uL (1.4-7.4); Neutrophils % 67.4 % (38.7-73.9); Platelet Count 469 T/CUMM (130-400); Red Blood Count 3.83 MC/CUMM (3.8-5.5); Red Cell Distribution Width 13.3 % (9.3-17.3); White Blood Count 9.7 T/CUMM (4-12)
[2018-09-09] MEDS: DEXT 5% NACL 0.45% KCL 40 MEQ 40 MEQ/1,000 ML BAG IV SCH ×3 (07:00→17:15)
[2018-09-09] MEDS: PANTOPRAZOLE 40 MG TABLET PO SCH (08:36)
[2018-09-09] MEDS: ONDANSETRON 4 MG/2 ML VIAL IV PRN (13:02)
[2018-09-09] MEDS: ENOXAPARIN 40 MG/0.4 ML SYRINGE SUBCUT SCH (13:04)
[2018-09-09] MEDS: ERTAPENEM 1,000 MG in SODIUM CHLORIDE 0.9% 100 ML IV SCH (13:05)
[2018-09-10] MEDS: HYDROmorphone 2 MG/1 ML VIAL IV PRN ×6 (01:56→17:16)
[2018-09-10] MEDS: DEXT 5% NACL 0.45% KCL 40 MEQ 40 MEQ/1,000 ML BAG IV SCH ×3 (01:58→15:49)
[2018-09-10] MEDS: PANTOPRAZOLE 40 MG TABLET PO SCH (09:56)
[2018-09-10] MEDS ORDERED: MEPERIDINE 25 MG/1 ML VIAL ONE (14:48)
[2018-09-10] MEDS ORDERED: PROPOFOL 200 MG/20 ML VIAL IV ONE (14:53)
[2018-09-10] MEDS ORDERED: MIDAZOLAM 2 MG/2 ML VIAL ONE (14:53)
[2018-09-10] MEDS ORDERED: fentaNYL 100 MCG/2 ML VIAL ONE (14:53)
[2018-09-10] MEDS ORDERED: LACTATED RINGERS 1,000 ML IV ONE (14:53)
[2018-09-10] MEDS ORDERED: HYDROmorphone 2 MG/1 ML VIAL ONE (14:55)
[2018-09-10] MEDS ORDERED: ONDANSETRON 4 MG/2 ML VIAL ONE (14:55)
[2018-09-10] MEDS ORDERED: ONDANSETRON 4 MG/2 ML VIAL IV PRN (14:59)
[2018-09-10] MEDS ORDERED: MEPERIDINE 25 MG/1 ML VIAL IV PRN (14:59)
[2018-09-10] MEDS: ERTAPENEM 1,000 MG in SODIUM CHLORIDE 0.9% 100 ML IV SCH (15:37)
[2018-09-10] MEDS: ENOXAPARIN 40 MG/0.4 ML SYRINGE SUBCUT SCH (15:37)
[2018-09-10] MEDS: oxyCODONE/ACETAMINOPHEN 5-325 MG TABLET PO PRN (19:59)
[2018-09-11] MEDS: DEXT 5% NACL 0.45% KCL 40 MEQ 40 MEQ/1,000 ML BAG IV SCH ×2 (01:36→16:43)
[2018-09-11] MEDS: HYDROmorphone 2 MG/1 ML VIAL IV PRN ×4 (01:37→19:34)
[2018-09-11] MEDS: PANTOPRAZOLE 40 MG TABLET PO SCH (08:30)
[2018-09-11] MEDS: FLUCONAZOLE 200 MG TABLET PO SCH (08:30)
[2018-09-11] MEDS: oxyCODONE/ACETAMINOPHEN 5-325 MG TABLET PO PRN ×3 (10:09→23:41)
[2018-09-11] MEDS: ENOXAPARIN 40 MG/0.4 ML SYRINGE SUBCUT SCH (16:42)
[2018-09-11] MEDS: ERTAPENEM 1,000 MG in SODIUM CHLORIDE 0.9% 100 ML IV SCH (16:53)
[2018-09-12 05:22] LABS: Basophils # 0.1 10*3/uL (0.0-0.2); Basophils % 0.7 % (0.0-0.8); Eosinophils # 0.4 10*3/uL (0.0-0.87); Eosinophils % 5.1 % (0.00-10.9); Hematocrit 38.1 VOL% (35.7-47.0); Hemoglobin 11.9 GM/DL (12.0-16.0); Immature Granulocytes % 0.7 %; Immature Granulocytes Absolute 0.05 #; Lymphocytes # 1.9 10*3/uL (1.4-4.0); Mean Corpuscular HGB Conc 31.2 GM/DL (32-36); Mean Corpuscular Hemoglobin 29 PG (27-34); Mean Corpuscular Volume 92.7 FL (87-102); Mean Platelet Volume 9.2 FL (9.6-12.0); Monocytes # 0.7 10*3/uL (0.11-0.8); Monocytes % 10.4 % (1.7-12.7); Neutrophils # 3.9 10*3/uL (1.4-7.4); Neutrophils % 56.1 % (38.7-73.9); Platelet Count 501 T/CUMM (130-400); Red Blood Count 4.11 MC/CUMM (3.8-5.5); Red Cell Distribution Width 13.2 % (9.3-17.3); White Blood Count 6.9 T/CUMM (4-12)
[2018-09-12 05:55] LABS: Calcium 9.3 MG/DL (8.5-10.1); Osmolality,Calculated 272.7 MOS/KG (273-304); Potassium 4.5 MMOL/L (3.5-5.1)
[2018-09-12] MEDS: oxyCODONE/ACETAMINOPHEN 5-325 MG TABLET PO PRN (06:25)
[2018-09-12] MEDS: DEXT 5% NACL 0.45% KCL 40 MEQ 40 MEQ/1,000 ML BAG IV SCH (07:31)
[2018-09-12] MEDS: HYDROmorphone 2 MG/1 ML VIAL IV PRN ×2 (07:33→13:03)
[2018-09-12] MEDS: FLUCONAZOLE 200 MG TABLET PO SCH (08:00)
[2018-09-12] MEDS: PANTOPRAZOLE 40 MG TABLET PO SCH (08:00)
[2018-09-12 11:46] VITALS: BP 134/88
[2018-09-12] MEDS: ERTAPENEM 1,000 MG in SODIUM CHLORIDE 0.9% 100 ML IV SCH (13:02)
[2018-09-12] MEDS: ENOXAPARIN 40 MG/0.4 ML SYRINGE SUBCUT SCH (13:04)
== END 2018-09-12 14:30 | disposition home or self-care (01) | DRG 392 ==
LOC: N.ED 19:48 → N.EDINP 09-07 00:09 → N.5E 09-07 00:35
PROVIDERS: ADMIT Surgery; ATTEND Surgery

== ENCOUNTER 2018-09-25 06:05 | Inpatient (IN) ==
[2018-09-25] MEDS ORDERED: ERTAPENEM 1,000 MG in SODIUM CHLORIDE 0.9% 100 ML IV ONE (06:30)
[2018-09-25] MEDS ORDERED: ALVIMOPAN 12 MG CAPSULE PO ONE (06:30)
[2018-09-25] MEDS ORDERED: FAMOTIDINE 20 MG TABLET PO ONE (06:30)
[2018-09-25] MEDS ORDERED: ALVIMOPAN 12 MG CAPSULE ONE (06:40)
[2018-09-25] MEDS ORDERED: FAMOTIDINE 20 MG TABLET ONE (06:40)
[2018-09-25] MEDS ORDERED: ERTAPENEM 1,000 MG VIAL ONE (06:40)
[2018-09-25] MEDS ORDERED: LACTATED RINGERS 1,000 ML IV SCH (07:00)
[2018-09-25] MEDS ORDERED: TISSUE ADHESIVE 1 EACH APPLICATOR TOP ONE (07:55)
[2018-09-25] MEDS ORDERED: INDOCYANINE GREEN 25 MG VIAL IV ONE (07:55)
[2018-09-25] MEDS ORDERED: PROPOFOL 200 MG/20 ML VIAL IV ONE (10:41)
[2018-09-25] MEDS ORDERED: LIDOCAINE 1% 5 ML VIAL ONE (10:42)
[2018-09-25] MEDS ORDERED: SEVOFLURANE 1 UNIT/15 MINUTE INH ONE (10:42)
[2018-09-25] MEDS ORDERED: SUFentanil 50 MCG/ML AMP ONE (10:44)
[2018-09-25] MEDS ORDERED: MIDAZOLAM 2 MG/2 ML VIAL ONE (10:44)
[2018-09-25] MEDS ORDERED: DEXAMETHASONE 10 MG/1 ML VIAL ONE (10:44)
[2018-09-25] MEDS ORDERED: KETOROLAC 30 MG/1 ML VIAL ONE (10:45)
[2018-09-25] MEDS ORDERED: ONDANSETRON 4 MG/2 ML VIAL ONE (10:45)
[2018-09-25] MEDS ORDERED: GLYCOPYRROLATE 0.4 MG/2 ML VIAL ONE (10:45)
[2018-09-25] MEDS ORDERED: PHENYLEPHRINE 1 MG/10 ML SYRINGE IV ONE (10:45)
[2018-09-25] MEDS ORDERED: ROCURONIUM 100 MG/10 ML VIAL IV ONE (10:46)
[2018-09-25] MEDS ORDERED: SODIUM CHLORIDE 0.9% 1,000 ML IV ONE (10:46)
[2018-09-25] MEDS ORDERED: NEOSTIGMINE 10 MG/10 ML VIAL ONE (10:46)
[2018-09-25] MEDS ORDERED: PROMETHAZINE 25 MG/1 ML VIAL IM PRN (11:06)
[2018-09-25] MEDS ORDERED: ONDANSETRON 4 MG/2 ML VIAL IV PRN (11:06)
[2018-09-25] MEDS ORDERED: oxyCODONE/ACETAMINOPHEN 5-325 MG TABLET PO PRN (11:06)
[2018-09-25] MEDS: KETOROLAC 15 MG/1 ML VIAL IV SCH ×2 (11:24→17:38)
[2018-09-25] MEDS: LACTATED RINGERS 1,000 ML IV SCH ×2 (11:27→19:38)
[2018-09-25 11:35] LABS: Basophils % 0.3 % (0.0-0.8); Eosinophils # 0.1 10*3/uL (0.0-0.87); Eosinophils % 0.4 % (0.00-10.9); Hematocrit 37.5 VOL% (35.7-47.0); Hemoglobin 11.5 GM/DL (12.0-16.0); Immature Granulocytes % 0.7 %; Immature Granulocytes Absolute 0.08 #; Lymphocytes # 0.5 10*3/uL (1.4-4.0); Lymphocytes % 4.5 % (21.3-54.2); Mean Corpuscular HGB Conc 30.7 GM/DL (32-36); Mean Corpuscular Hemoglobin 29 PG (27-34); Mean Corpuscular Volume 93.1 FL (87-102); Mean Platelet Volume 9.2 FL (9.6-12.0); Monocytes # 0.2 10*3/uL (0.11-0.8); Monocytes % 1.3 % (1.7-12.7); Neutrophils % 92.8 % (38.7-73.9); Platelet Count 426 T/CUMM (130-400); Red Blood Count 4.03 MC/CUMM (3.8-5.5); Red Cell Distribution Width 13.4 % (9.3-17.3); White Blood Count 11.9 T/CUMM (4-12)
[2018-09-25 11:51] LABS: Calcium 8.6 MG/DL (8.5-10.1); Osmolality,Calculated 277.3 MOS/KG (273-304); Potassium 3.7 MMOL/L (3.5-5.1)
[2018-09-25 11:57] LABS: Band Neutrophils 1 % (0-10); Eosinophils 1 % (0-10); Lymphocytes 5 % (20-55); Segmented Neutrophils 90 % (50-85); Total Cells Counted 100
[2018-09-25 11:58] LABS: Hypochromasia 1+; Microcytosis 1+
[2018-09-25] MEDS: HYDROmorphone 2 MG/1 ML VIAL IV PRN ×3 (11:58→21:56)
[2018-09-25 11:59] LABS: Ovalocytes Slight
[2018-09-25] MEDS ORDERED: ENOXAPARIN 40 MG/0.4 ML SYRINGE SUBCUT SCH (21:00)
[2018-09-25] MEDS: ALVIMOPAN 12 MG CAPSULE PO SCH (21:54)
[2018-09-25] MEDS: PROPRANOLOL 40 MG TABLET PO SCH (21:56)
[2018-09-26] MEDS: KETOROLAC 15 MG/1 ML VIAL IV SCH ×2 (00:12→06:36)
[2018-09-26] MEDS: LACTATED RINGERS 1,000 ML IV SCH (04:35)
[2018-09-26] MEDS ORDERED: LEVOTHYROXINE 50 MCG TABLET PO SCH (07:00)
[2018-09-26] MEDS ORDERED: ERTAPENEM 1,000 MG in SODIUM CHLORIDE 0.9% 100 ML IV SCH (08:00)
[2018-09-26] MEDS: ALVIMOPAN 12 MG CAPSULE PO SCH (08:49)
[2018-09-26] MEDS ORDERED: ASPIRIN EC 81 MG TABLET PO SCH (09:00)
[2018-09-26] MEDS: HYDROmorphone 2 MG/1 ML VIAL IV PRN (09:02)
[2018-09-26 12:12] VITALS: BP 108/57
[2018-09-26] MEDS: PROPRANOLOL 40 MG TABLET PO SCH (12:13)
== END 2018-09-26 12:58 | disposition home or self-care (01) | DRG 331 ==
LOC: N.SDSINP 06:05 → N.OR 06:05 → N.SDSINP 06:06 → EDSTATUS 07:30 → EDREFBED 11:03 → N.SDSINP 11:03 → N.5E 11:03 → N.OR 09-26 12:58 → N.5E 10-06 15:50
PROVIDERS: ADMIT Surgery; ATTEND Surgery